=== PATIENT | female | born 1950 | race Caucasian/White ===

== ENCOUNTER → 2023-04-30 | Outpatient (CLI) | payer MEDICARE, MEDICAID ==
[2023-04-30 09:30] LABS: BASOPHILS % 0.8 % (0.0-2.0); EOSINOPHILS % 0.9 % (0.0-5.0); HEMOGLOBIN. 12.9 g/dL (12.0-16.0); LYMPHOCYTES % 24.3 % (20.0-50.0); MEAN CORPUSCULAR HEMOGLOBIN 29.2 pg (28.0-32.0); MEAN CORPUSCULAR HGB CONC 33.8 g/dL (31.0-37.0); MEAN CORPUSCULAR VOLUME 86.5 fL (81.0-99.0); MEAN PLATELET VOLUME 8.7 fl (7.4-10.4); MONOCYTES % 6.6 % (2.0-8.0); NEUTROPHILS % 67.4 % (40.0-76.0); PLATELET 316 x1000/uL (130-400); RED CELL DISTRIBUTION WIDTH 13.8 % (11.6-14.6); WHITE BLOOD COUNT 5.3 x1000/uL (4.5-11.0)
[2023-04-30 09:34] LABS: CLARITY URINE CLEAR (CLEAR); COLOR URINE YELLOW (YELLOW); GLUCOSE URINE 1+ (NEGATIVE); KETONES URINE NEGATIVE (NEGATIVE); LEUKOCYTE ESTERASE URINE 2+ (NEGATIVE); NITRITE URINE POSITIVE (NEGATIVE); OCCULT BLOOD URINE NEGATIVE (NEGATIVE); PROTEIN URINE TRACE (NEGATIVE); SPECIFIC GRAVITY URINE 1.015 (1.005-1.030)
[2023-04-30 09:44] LABS: CHLORIDE 97 mEq/L (98-107); INDEX HEMOLYSI 1 (1-3); INDEX ICTERIC 1 (1-4); INDEX LIPEMIC 1 (1-3); POTASSIUM 4.6 mEq/L (3.5-5.1); SODIUM 130 mEq/L (136-145)
[2023-04-30 09:49] LABS: BACTERIA URINE 3+; SQUAMOUS EPITHELIAL CELL URINE 1+ /lpf (RARE/1+)
[2023-04-30 09:50] LABS: WBC URINE 15-25 /hpf (0-2)
[2023-04-30 09:51] LABS: RBC URINE 0-2 /hpf (0-2)
[2023-04-30 10:00] LABS: ALANINE AMINOTRANSFERASE 24 IU/L (13-61); ALBUMIN 4.1 g/dL (3.4-5.0); ASPARTATE AMINOTRANSFERASE 14 IU/L (15-37); BILIRUBIN TOTAL 0.3 mg/dL (0.1-1.0); CALCIUM 9.3 mg/dL (8.5-10.1); CARBON DIOXIDE 26 mEq/L (21-32); CHOLESTEROL 207 mg/dL (<200); CREATININE 0.5 mg/dL (0.6-1.3); GLUCOSE 197 mg/dL (70-105); HDL CHOLESTEROL 52 mg/dL (40-59); LDL CHOLESTEROL 148 mg/dL (5-100); PROTEIN TOTAL 7.6 g/dL (6.0-8.3); TRIGLYCERIDE 110 mg/dL (0-150); UREA NITROGEN BLOOD 13 mg/dL (7-21); URIC ACID 4.3 mg/dL (2.6-7.2)
[2023-05-01 08:11] LABS: T4 THYROXINE 7.8 ug/dL (4.5-12.0); VITAMIN D 25-OH 19.3 ng/mL (30.0-100.0)
== END | disposition home or self-care (01) ==
LOC: LAB 08:37
PROVIDERS: ATTEND Internal Medicine
DX: Z01.812 Encounter for preprocedural laboratory examination (principal)
CPT/HCPCS: 36415; 80053; 80061; 81003; 82270; 82306; 83036; 84436; 84443; 84479; 84550; 85025; 87186